=== PATIENT | female | born 1940 | race Caucasian/White ===

== ENCOUNTER 2020-09-13 14:26 | Outpatient (REF) | payer MEDICARE, SELFPAY ==
[2020-09-13 18:19] LABS: Anion Gap 14 (12-20); Blood Urea Nitrogen 18 mg/dL (9-16); Calcium 8.9 mg/dL (8.4-10.2); Carbon Dioxide 31 mmol/L (22-29); Chloride 101 mmol/L (96-108); Estimated Glomerular Filt Rate > 60; Glucose Random 80 mg/dL (60-115); Potassium 5.1 mmol/L (3.3-5.1); Sodium 141 mmol/L (135-145)
[2020-09-13 18:22] LABS: Hemoglobin 14.8 g/dl (12.0-16.0); Mean Corpuscular HGB Conc 32.9 g/dl (31.0-35.0); Mean Corpuscular Hemoglobin 30.8 pg (27.0-33.0); Mean Corpuscular Volume 93.6 fL (80-98); Mean Platelet Volume 10.3 fL (9.4-12.3); Platelet Count 360 X10*3/uL (160-400); Red Blood Count 4.81 X10*6/uL (4.20-5.50); Red Cell Distribution Width 13.2 % (11.0-16.0); White Blood Count 10.2 X10*3/uL (4.8-10.8)
[2020-09-13 18:41] LABS: Free T4 (Free Thyroxine) 0.92 ng/dL (0.71-1.85); Thyroid Stimulating Hormone 2.14 uIU/mL (0.32-4.0)
== END 2020-09-13 14:27 | disposition home or self-care (01) ==
LOC: HO.MANLDS 14:26
PROVIDERS: PCP Internal Medicine; Visit Provider Internal Medicine
DX: E05.90 Thyrotoxicosis, unspecified without thyrotoxic crisis or storm (principal); I48.91 Unspecified atrial fibrillation
CPT/HCPCS: 36415; 80048; 84439; 84443; 85027

== ENCOUNTER 2021-05-06 11:40 | Outpatient (REF) | payer MEDICARE, SELFPAY ==
[2021-05-06 12:50] LABS: Hemoglobin 14.8 g/dl (12.0-16.0); Mean Corpuscular HGB Conc 32.9 g/dl (31.0-35.0); Mean Corpuscular Hemoglobin 30.6 pg (27.0-33.0); Mean Corpuscular Volume 93.2 fL (80.0-98.0); Mean Platelet Volume 10.1 fL (9.4-12.3); Platelet Count 337 X10*3/uL (160-400); Red Blood Count 4.83 X10*6/uL (4.20-5.50); Red Cell Distribution Width 13.5 % (11.0-16.0); White Blood Count 9.2 X10*3/uL (4.8-10.8)
[2021-05-06 13:16] LABS: Alanine Aminotransferase 14 U/L (0-31); Albumin Level 4.1 g/dL (3.5-5.0); Alkaline Phosphatase 92 U/L (39-117); Anion Gap 14 (12-20); Aspartate Amino Transferase 20 U/L (5-31); Bilirubin Total 0.8 mg/dL (0.0-1.0); Blood Urea Nitrogen 19 mg/dL (9-16); Calcium 8.9 mg/dL (8.4-10.2); Carbon Dioxide 29 mmol/L (22-29); Chloride 101 mmol/L (96-108); Estimated Glomerular Filt Rate > 60; Glucose Random 90 mg/dL (60-115); Potassium 4.5 mmol/L (3.3-5.1); Sodium 139 mmol/L (135-145); Total Protein 6.8 g/dL (6.5-8.0)
[2021-05-06 13:38] LABS: Thyroid Stimulating Hormone 1.42 uIU/mL (0.32-4.0); Vitamin D 25-OH Total 43.4 ng/mL (>30)
== END 2021-05-06 11:41 | disposition home or self-care (01) ==
LOC: HO.MANLDS 11:40
PROVIDERS: PCP Internal Medicine; Visit Provider Internal Medicine
DX: E05.90 Thyrotoxicosis, unspecified without thyrotoxic crisis or storm (principal); I10 Essential (primary) hypertension
CPT/HCPCS: 36415; 80053; 82306; 84443; 85027

== ENCOUNTER 2021-12-12 18:38 | Outpatient (REF) | payer MEDICARE, SELFPAY ==
[2021-12-12 18:57] LABS: Appearance Urine HAZY; Color Urine DK YELLOW; Glucose Urine UA NEG (NEG); Leukocyte Esterase Urine 1+ (NEG); Nitrite Urine POS (NEG); Specific Gravity - Urine >= 1.030 (1.005-1.025); UACC Culture Trigger YES; Urine Blood NEG (NEG); Urine Ketones 5 MG/DL (NEG); Urine Protein NEG (NEG-TRACE)
[2021-12-12 19:10] LABS: Squamous Epithelial Cell Urine 3+ /LPF
[2021-12-12 19:11] LABS: Bacteria Urine 2+ /LPF; Calcium Oxalate Crystals Urine TRACE /LPF
[2021-12-12 19:13] LABS: RBC Urine 0-2 /HPF (0)
== END 2021-12-12 18:39 | disposition home or self-care (01) ==
LOC: HO.LNP 18:38
PROVIDERS: Visit Provider Physician Assistant
DX: R30.0 Dysuria (principal)
CPT/HCPCS: 81001; 87086; 87088; 87186

== ENCOUNTER 2021-12-27 12:20 | Outpatient (REF) | payer MEDICARE, SELFPAY ==
[2021-12-27 17:36] LABS: MANUAL DIFF FLAG NO
[2021-12-27 17:41] LABS: Appearance Urine CLEAR; Color Urine YELLOW; Glucose Urine UA NEG (NEG); Leukocyte Esterase Urine NEG (NEG); Nitrite Urine NEG (NEG); Specific Gravity - Urine 1.025 (1.005-1.025); Urine Blood NEG (NEG); Urine Ketones NEG (NEG); Urine Protein NEG (NEG-TRACE)
[2021-12-27 17:42] LABS: Basophils Absolute Auto 0.1 X10*3/uL (0.0-0.2); Basophils Percent Auto 0.8 % (0-2); Eosinophils Absolute Auto 0.1 X10*3/uL (0.0-0.4); Eosinophils Percent Auto 1.2 % (0-4); Hematocrit 45.4 % (37.0-47.0); Hemoglobin 14.5 g/dl (12.0-16.0); Imm Gran Abs Auto 0.02 X10*3/uL (0.00-0.03); Imm Gran Pct Auto 0.2 % (0.0-0.4); Lymphocytes Absolute Auto 4.3 X10*3/uL (1.2-4.9); Lymphocytes Percent Auto 45.6 % (20-40); Mean Corpuscular HGB Conc 31.9 g/dl (31.0-35.0); Mean Corpuscular Hemoglobin 29.9 pg (27.0-33.0); Mean Corpuscular Volume 93.6 fL (80.0-98.0); Monocytes Absolute Auto 1.1 X10*3/uL (0.1-1.2); Monocytes Percent Auto 11.9 % (2-11); Neutrophils Absolute Auto 3.8 x10*3/uL (2.0-8.3); Neutrophils Percent Auto 40.3 % (45-73); Platelet Count 329 X10*3/uL (160-400); Red Blood Count 4.85 X10*6/uL (4.20-5.50); Red Cell Distribution Width 13.9 % (11.0-16.0); White Blood Count 9.4 X10*3/uL (4.8-10.8)
[2021-12-27 18:06] LABS: Alanine Aminotransferase 13 U/L (0-31); Alkaline Phosphatase 87 U/L (39-117); Anion Gap 14 (12-20); Aspartate Amino Transferase 20 U/L (5-31); Bilirubin Total 0.9 mg/dL (0.0-1.0); Blood Urea Nitrogen 16 mg/dL (9-16); Calcium 8.6 mg/dL (8.4-10.2); Carbon Dioxide 27 mmol/L (22-29); Chloride 100 mmol/L (96-108); Estimated Glomerular Filt Rate > 60; Glucose Random 90 mg/dL (60-115); Iron 147 mcg/dL (30-160); Percent Iron Saturation 46 % (15-50); Potassium 3.7 mmol/L (3.3-5.1); Sodium 137 mmol/L (135-145); Total Iron Binding Capacity 320 mcg/dL (228-428); Total Protein 6.7 g/dL (6.5-8.0); Unsaturated Iron Binding 173 ug/dL
[2021-12-27 18:07] LABS: Calcium Oxalate Crystals Urine 1+ /LPF; Squamous Epithelial Cell Urine 1+ /LPF
[2021-12-27 18:09] LABS: Hyaline Casts Urine 0-2 /LPF
[2021-12-27 18:10] LABS: RBC Urine 0-2 /HPF (0); WBC Urine 0 /HPF (0-4)
== END 2021-12-27 12:21 | disposition home or self-care (01) ==
LOC: HO.MANLDS 12:20
PROVIDERS: Visit Provider Physician Assistant
DX: R82.998 Other abnormal findings in urine (principal)
CPT/HCPCS: 36415; 80053; 81001; 83540; 85025

== ENCOUNTER 2022-11-07 10:23 | Outpatient (REF) | payer MEDICARE, SELFPAY ==
[2022-11-07 14:18] LABS: MANUAL DIFF FLAG NO
[2022-11-07 14:29] LABS: Basophils Absolute Auto 0.1 X10*3/uL (0.0-0.2); Eosinophils Absolute Auto 0.2 X10*3/uL (0.0-0.4); Eosinophils Percent Auto 1.8 % (0-4); Hematocrit 45.6 % (37.0-47.0); Hemoglobin 14.7 g/dl (12.0-16.0); Imm Gran Abs Auto 0.03 X10*3/uL (0.00-0.03); Imm Gran Pct Auto 0.3 % (0.0-0.4); Lymphocytes Absolute Auto 3.4 X10*3/uL (1.2-4.9); Lymphocytes Percent Auto 38.3 % (20-40); Mean Corpuscular HGB Conc 32.2 g/dl (31.0-35.0); Mean Corpuscular Hemoglobin 30.2 pg (27.0-33.0); Mean Corpuscular Volume 93.8 fL (80.0-98.0); Mean Platelet Volume 10.2 fL (9.4-12.3); Monocytes Absolute Auto 0.9 X10*3/uL (0.1-1.2); Monocytes Percent Auto 10.5 % (2-11); Neutrophils Absolute Auto 4.3 x10*3/uL (2.0-8.3); Neutrophils Percent Auto 48.1 % (45-73); Platelet Count 302 X10*3/uL (160-400); Red Blood Count 4.86 X10*6/uL (4.20-5.50); Red Cell Distribution Width 13.5 % (11.0-16.0); White Blood Count 8.9 X10*3/uL (4.8-10.8)
[2022-11-07 14:40] LABS: INTERNATIONAL NORM RATIO 2.3 (0.9-1.1); Prothrombin Time 27.9 SEC (10.0-13.1)
[2022-11-07 14:57] LABS: Alanine Aminotransferase 15 U/L (0-31); Alkaline Phosphatase 98 U/L (39-117); Anion Gap 13 (12-20); Aspartate Amino Transferase 21 U/L (5-31); Bilirubin Total 0.5 mg/dL (0.0-1.0); Blood Urea Nitrogen 18 mg/dL (9-16); Calcium 9.3 mg/dL (8.4-10.2); Carbon Dioxide 29 mmol/L (22-29); Chloride 103 mmol/L (96-108); Estimated Glomerular Filt Rate > 60; Glucose Random 106 mg/dL (60-115); Iron 70 mcg/dL (30-160); Percent Iron Saturation 25 % (15-50); Potassium 5.2 mmol/L (3.3-5.1); Sodium 140 mmol/L (135-145); Total Iron Binding Capacity 285 mcg/dL (228-428); Total Protein 6.7 g/dL (6.5-8.0); Unsaturated Iron Binding 215 ug/dL
[2022-11-07 15:15] LABS: Ferritin 51 ng/mL (10-250); Thyroid Stimulating Hormone 1.78 uIU/mL (0.32-4.0)
== END 2022-11-07 10:24 | disposition home or self-care (01) ==
LOC: HO.MANLDS 10:23
PROVIDERS: Visit Provider Internal Medicine
DX: I48.0 Paroxysmal atrial fibrillation (principal); I10 Essential (primary) hypertension; Z86.39 Personal history of other endocrine, nutritional and metabolic disease
CPT/HCPCS: 36415; 80053; 82728; 83540; 84443; 85025; 85610

== ENCOUNTER 2024-01-01 08:57 | Outpatient (REF) | payer MEDICARE, SELFPAY ==
[2024-01-01 13:00] LABS: MANUAL DIFF FLAG NO
[2024-01-01 13:23] LABS: Basophils Absolute Auto 0.1 X10*3/uL (0.0-0.2); Eosinophils Absolute Auto 0.2 X10*3/uL (0.0-0.4); Hematocrit 46.1 % (37.0-47.0); Hemoglobin 14.8 g/dl (12.0-16.0); Imm Gran Abs Auto 0.02 X10*3/uL (0.00-0.03); Imm Gran Pct Auto 0.2 % (0.0-0.4); Lymphocytes Absolute Auto 4.3 X10*3/uL (1.2-4.9); Lymphocytes Percent Auto 47.4 % (20-40); Mean Corpuscular HGB Conc 32.1 g/dl (31.0-35.0); Mean Corpuscular Volume 93.3 fL (80.0-98.0); Mean Platelet Volume 10.4 fL (9.4-12.3); Monocytes Absolute Auto 0.8 X10*3/uL (0.1-1.2); Monocytes Percent Auto 8.7 % (2-11); Neutrophils Absolute Auto 3.7 x10*3/uL (2.0-8.3); Neutrophils Percent Auto 40.7 % (45-73); Platelet Count 335 X10*3/uL (160-400); Red Blood Count 4.94 X10*6/uL (4.20-5.50); Red Cell Distribution Width 13.7 % (11.0-16.0)
[2024-01-01 13:25] LABS: INTERNATIONAL NORM RATIO 2.9 (0.9-1.1); Prothrombin Time 34.8 SEC (11.1-13.3)
[2024-01-01 13:32] LABS: Estimated Average Glucose 114 mg/dL; Hemoglobin A1c % 5.6 % (<6.0)
[2024-01-01 13:46] LABS: Alanine Aminotransferase 12 U/L (0-31); Albumin Level 4.1 g/dL (3.5-5.0); Alkaline Phosphatase 91 U/L (39-117); Anion Gap 13 (12-20); Aspartate Amino Transferase 24 U/L (5-31); Bilirubin Total 0.7 mg/dL (0.0-1.0); Blood Urea Nitrogen 19 mg/dL (9-16); Calcium 9.6 mg/dL (8.4-10.2); Carbon Dioxide 30 mmol/L (22-29); Chloride 102 mmol/L (96-108); Cholesterol 211 mg/dL (<200); Estimated Glomerular Filt Rate > 60; Glucose Random 84 mg/dL (60-115); HDL Cholesterol 43 mg/dL (>40); LDL Cholesterol Calculated 141 mg/dL (<100); Potassium 4.7 mmol/L (3.3-5.1); Sodium 140 mmol/L (135-145); Total Protein 7.2 g/dL (6.5-8.0); Triglycerides 135 mg/dL (<150)
[2024-01-01 13:56] LABS: Vitamin B12 1356 pg/mL (200-900)
[2024-01-01 14:04] LABS: Thyroid Stimulating Hormone 1.09 uIU/mL (0.32-4.0); Vitamin D 25-OH Total 84.7 ng/mL (>30)
== END 2024-01-01 08:58 | disposition home or self-care (01) ==
LOC: HO.MANLDS 08:57
PROVIDERS: Visit Provider Physician Assistant
DX: Z00.00 Encounter for general adult medical examination without abnormal findings (principal); I48.0 Paroxysmal atrial fibrillation; R73.01 Impaired fasting glucose
CPT/HCPCS: 36415; 80053; 80061; 82306; 82607; 83036; 84439; 84443; 85025; 85610

== ENCOUNTER 2025-04-07 15:17 | Outpatient (REF) | payer MEDICARE, SELFPAY ==
--- OUTSIDE RECORDS SUMMARY | 2025-04-07 18:28 | XMS_ITS | Encounter Summary ---
Author Organization [facility] Address [address] [place] [address] Phone Care Team Providers Care Automatic Brine Mixer Operator Name Role Phone Danny Morgan DO Primary Care Provider [phone] Radha Tapia RN Unavailable [phone] Danny Morgan DO Primary Care Provider [phone] Encounter Details Date Type Department Care Team (Late Contact Info) Description 05/07/2017 Procedure Pass [facility] Endoscopy Admitting Dept Virtual Department 30 [place] [address] Social History Tobacco Use Types Packs/Day Years Used Date Smoking Tobacco: Former Cigarettes Q uit: 07/02/1967 Smokeless Tobacco: Never Alcohol Use Standard Drinks/Week Comments No 0 (1 standard drink = 0.6 oz pur e alcohol) Occasional Comments No Sex and Gender Information Value Date Recorded Sex Assigned at Female 07/09/2017 9:38 AM EST Legal Sex Female 10:13 PM EDT Gender Identity Female 07/09/2017 9:38 AM EST Sexual Orientation Straight 07/09/2017 9: 38 AM EST documented as of this encounter Plan of Treatment Upcoming Encounters Date Type Department Care Team (Late Contact Info) Description 04/27/2025 10:00 AM EDT Office Visit Anticoagulation Clinic 30 [place] [address] Danny Morgan DO 179 [facility] [place] [address] [email or web address] 06/05/2025 8:20 AM EST Office Visit [facility] [address] Floor, [address] [place] [address] Duncan Venegas MD 50 [place] [address] documented as of this encounter Visit Diagnoses Not on filedocumented in this encounter Additional Health Concerns Infection Onset Date Last Indicated Resolved Time CoV-Exposed Comment:Recent close contact 07/13/2020 07/13/2020 07/27/2020 1:24 AM EST documented as of this encounter Care Teams Automatic Brine Mixer Operator Relationship Specialty Start Date End Date Danny Morgan DO [email or web address] PCP - General 04/19/17 11/02/24 Danny Morgan DO 179 [facility] [place] [address] [place] [address] [email or web address] PCP - General Internal Medicine 11/03/24 Radha Tapia, RN 30 [place] [address] Registered Nurse 11/21/21 documented as of this encounter Additional Source Comments The information contained in this document represents components of the legal health record. It is not the complete legal health record.[facility]
--- OUTSIDE RECORDS SUMMARY | 2025-04-07 18:28 | XMS_ITS | Encounter Summary ---
Author Organization [facility] Address [address] [place] [address] Phone Care Team Providers Care Central Service Tech Name Role Phone Danny Morgan DO Primary Care Provider [phone] Radha Tapia RN Unavailable [phone] Danny Morgan DO Primary Care Provider [phone] Encounter Details Date Type Department Care Team (Late Contact Info) Description 05/06/2017 Procedure Pass [facility] Endoscopy Admitting Dept Virtual Department 30 [place] [address] Social History Tobacco Use Types Packs/Day Years [...] AM EDT Office Visit Anticoagulation Clinic 30 [place] [address] Danny Morgan DO 179 [place] [address] 06/05/2025 8:20 AM EST Office Visit [facility] [address] Floor, [address] [place] [address] Duncan Venegas MD 50 [place] [address] documented as of this encounter Visit Diagnoses Not on filedocumented in this encounter Additional Health Concerns Infection Onset Date Last Indicated Resolved Time CoV-Exposed Comment:Recent close contact 07/13/2020 07/13/2020 07/27/2020 1:24 AM EST documented as of this encounter Care Teams Central Service Tech Relationship Specialty Start Date End Date Danny Morgan DO PCP - General 04/19/17 11/02/24 Danny Morgan DO 179 [facility] [place] [address] PCP - General Internal Medicine 11/03/24 Radha Tapia, RN 30 [place] [address] Registered Nurse 11/21/21 documented as of this encounter Additional Source Comments The information contained in this document represents components of the legal health record. It is not the complete legal health record.[facility]
--- OUTSIDE RECORDS SUMMARY | 2025-04-07 18:28 | XMS_ITS | Encounter Summary ---
Author Organization [facility] Address [address] [place] [address] Phone Care Team Providers Care Music Agent Name Role Phone Danny Morgan DO Primary Care Provider [phone] Radha Tapia RN Unavailable [phone] Danny Morgan DO Primary Care Provider [phone] Reason for Referral * Consultation (Routine) - Closed Specialty Diagnoses / Procedures Referred By Italia rincon Referred To Contact Diagnoses Atrial fibrillation Chronic anticoagulation Danny Morgan DO Phone: tel: fax: mailto: [address] [address] Phone: tel: Referral ID Status Reason Start Date Expiration Date Visits Re quested Visits Authorized [id number] Closed 09/03/2017 09/03/2018 1 1 Encounter Details Date Type Department Care Team (Latest Contact Info) Description 09/03/2017 Transcribe Orders Anticoagulation Clinic [address] [place] [address] Leana Grider RN 30 [place] [address] [email or web address] Atrial fibrillation (Primary Dx); Chronic anticoagulation Social History Tobacco Use Types Packs/Day Years [...] Encounters Date Type Department Care Team (Late st Contact Info) Description 04/27/2025 10:00 AM EDT Office Visit Anticoagulation Clinic 30 [place] [address] Danny Morgan DO 179 [facility] [place] [address] [email or web address] 06/05/2025 8:20 AM EST Office Visit [facility] [address] [facility] 3rd Floor, [address] [place] [address] Duncan Venegas MD [address] [place] [address] [email or web address] documented as of this encounter Procedures Procedure Name Priority Date/Time Associated Diagnosis Comments AMB REFERRAL TO [facility] ANTICOAGULATION [facility]IC Routine 09/10/2017 10:44 AM EDT Atrial fibrillation Chronic anticoagulation documented in this encounter Results * Ambulatory referral to [facility] Anticoagulation Clinic (09/10/2017 10:44 AM EDT) us Danny BASHIR [facility] REFERRALS Final Result documented in this encounter Visit Diagnoses Diagnosis Atrial fibrillation- Primary Chronic anticoagulation Encounter for long-term (current) use of anticoagulants documented in this encounter Additional Health Concerns Infection Onset Date Last Indicated Resolved Time CoV-Exposed Comment:Recent close contact 07/13/2020 07/13/2020 07/27/2020 1:24 AM EST documented as of this encounter Care Teams Music Agent Relationship Specialty Start Date End Date Danny Morgan DO PCP - General 04/19/17 11/02/24 Danny Morgan DO 179 [place] [address] [email or web address] PCP - General Internal Medicine 11/03/24 Radha Tapia, RN 30 [place] [address] [email or web address] Registered Nurse 11/21/21 documented as of this encounter Additional Source Comments The information contained in this document represents components of the legal health record. It is not the complete legal health record.[facility]
--- OUTSIDE RECORDS SUMMARY | 2025-04-07 18:28 | XMS_ITS | Encounter Summary ---
Author Organization [facility] Address [address] [place] [address] Phone Care Team Providers Care Lead Ramp Agent Name Role Phone Danny Morgan DO Primary Care Provider [phone] Radha Tapia RN Unavailable [phone] Danny Morgan DO Primary Care Provider [phone] Encounter Details Date Type Department Care Team (Late Contact Info) Description 01/25/2022 Ancillary Orders Virtual Department 30 [place] [address] Sarita Coulter PA 6 [facility] [place] [address] Social History Tobacco Use Types Packs/Day Years [...] AM EDT Office Visit Anticoagulation Clinic 30 [place] [address] Danny Morgan DO 179 [facility] [place], [place] [phone] 06/05/2025 8:20 AM EST Office Visit [facility] [address] [facility] [address], [address] [place] [address] Duncan Venegas MD 50 [place] [address] documented as of this encounter Visit Diagnoses Not on filedocumented in this encounter Care Teams Lead Ramp Agent Relationship Specialty Start Date End Date Danny Morgan DO PCP - General 04/19/17 11/02/24 Danny Morgan DO 179 [facility] [place] [address] PCP - General Internal Medicine 11/03/24 Radha Tapia, RN 30 [place] [address] Registered Nurse 11/21/21 documented as of this encounter Additional Source Comments The information contained in this document represents components of the legal health record. It is not the complete legal health record.[facility]
--- OUTSIDE RECORDS SUMMARY | 2025-04-07 18:28 | XMS_ITS | Encounter Summary ---
Author Organization [facility] Address [address] [place] [address] Phone Care Team Providers Care Mattress Filling Machine Tender Name Role Phone Danny Morgan DO Primary Care Provider [phone] Radha Tapia RN Unavailable [phone] Danny Morgan DO Primary Care Provider [phone] Encounter Details Date Type Department Care Team ([facility] Contact Info) Description 06/14/2017 Ancillary Orders Virtual Department 30 [place] [address] James Dover MD [address] [place] [phone] [email or web address] Abdominal pain, unspecified abdominal location Social History Tobacco Use Types Packs/Day Years [...] Upcoming Encounters Date Type Department Care Team ([facility] Contact Info) Description 04/27/2025 10:00 AM EDT Office Visit Anticoagulation Clinic 30 [place] [address] Danny Morgan DO 179 [facility] [place] [address] 06/05/2025 8:20 AM EST Office Visit [facility] [address] Floor, [address] [place] [address] Duncan Venegas MD [address] [place] [address] documented as of this encounter Visit Diagnoses Diagnosis Abdominal pain, unspecified abdominal location documented in this encounter Additional Health Concerns Infection Onset Date Last Indicated Resolved Time CoV-Exposed Comment:Recent close contact 07/13/2020 07/13/2020 07/27/2020 1:24 AM EST documented as of this encounter Care Teams Mattress Filling Machine Tender Relationship Specialty Start Date End Date Danny Morgan DO PCP - General 04/19/17 11/02/24 Danny Morgan DO 179 [facility] [place] [address] PCP - General Internal Medicine 11/03/24 Radha Tapia, RN 30 [place] [address] Registered Nurse 11/21/21 documented as of this encounter Additional Source Comments The information contained in this document represents components of the legal health record. It is not the complete legal health record.[facility]
--- OUTSIDE RECORDS SUMMARY | 2025-04-07 18:28 | XMS_ITS | Encounter Summary ---
Author Organization [facility] Address [address] [place] [address] Phone Care Team Providers Care Senior Hris Analyst Name Role Phone Danny Morgan DO Primary Care Provider [phone] Radha Tapia RN Unavailable [phone] Danny Morgan DO Primary Care Provider [phone] Encounter Details Date Type Department Care Team (Late Contact Info) Description 09/03/2017 Procedure Pass [facility] Endoscopy Admitting Dept Virtual Department 30 [place] [address] Social History Tobacco Use Types Packs/Day Years [...] AM EDT Office Visit Anticoagulation Clinic 30 [place] [address] Danny Morgan DO 179 [facility] [place] [address] 06/05/2025 8:20 AM EST Office Visit [facility] [address], [address] [place] [address] Duncan Venegas MD 50 [place] [address] documented as of this encounter Visit Diagnoses Not on filedocumented in this encounter Additional Health Concerns Infection Onset Date Last Indicated Resolved Time CoV-Exposed Comment:Recent close contact 07/13/2020 07/13/2020 07/27/2020 1:24 AM EST documented as of this encounter Care Teams Senior Hris Analyst Relationship Specialty Start Date End Date Danny Morgan DO PCP - General 04/19/17 11/02/24 Danny Morgan DO 179 [facility] [place] [place] [address] PCP - General Internal Medicine 11/03/24 Radha Tapia, RN 30 [place] [address] Registered Nurse 11/21/21 documented as of this encounter Additional Source Comments The information contained in this document represents components of the legal health record. It is not the complete legal health record.[facility]
--- OUTSIDE RECORDS SUMMARY | 2025-04-07 18:28 | XMS_ITS | Encounter Summary ---
Author Organization [facility] Address [address] [address] Phone Care Team Providers Care Silk Conditioner Name Role Phone Danny Morgan DO Primary Care Provider [phone] Radha Tapia RN Unavailable [phone] Danny Morgan DO Primary Care Provider [phone] Encounter Details Date Type Department Care Team (Latest Contact Info) Description 09/26/2017 Transcribe Orders [facility] Laboratory 10 [facility] 2nd [place] [address] Rei Nguyen MD 10 [facility] 2 [place] [address] [email or web address] Acute gastrointestinal hemorrhage (Primary Dx) Social History Tobacco Use Types Packs/Day Years [...] AM EDT Office Visit Anticoagulation Clinic 30 [place] [address] Danny Morgan DO 179 [facility] [place] [address] 06/05/2025 8:20 AM EST Office Visit [facility] [address] Floor, [address] [place] [address] Duncan Venegas MD 50 [place] [address] documented as of this encounter Results * Ferritin (09/26/2017 9:57 AM EDT) FERRITIN 78 13 - 150 ug/L [facility] Blood 09/26/2017 9:57 AM EDT 09/26/2017 10:00 AM EDT us Rei Nguyen MD LAB BLOOD ORDERABLES Final Resul t [address] [address] * TSH (09/26/2017 9:57 AM EDT) TSH 1.86 0.27 - 4.20 uIU/mL [facility] Blood 09/26/2017 9:57 AM EDT 09/26/2017 10:00 AM EDT us Rei Nguyen MD LAB BLOOD ORDERABLES Final Resul t [address] [address] * Iron and iron binding capacity (09/26/2017 9:57 AM EDT) IRON 131 30 - 160 ug/dL [facility] IRON BINDING CAPACITY 275 228 - 428 ug/dL [facility] TRANSFERRIN SATURAT. 48 15 - 50 % [facility] Blood 09/26/2017 9:57 AM EDT 09/26/2017 10:00 AM EDT us Rei Nguyen MD LAB BLOOD ORDERABLES Final Resul t [facility] 30 [place] [address] * (ABNORMAL) CBC and differential (09/26/2017 9:57 AM EDT) WBC 7.25 3.40 - 11.20 K/uL [facility] RBC 4.88(H) 3.80 - 4.80 M/uL [facility] HGB 14.2 12.0 - 15.0 g/dL [facility] HCT 43.3 36.0 - 46.0 % [facility] PLT 318 130 - 400 K/uL [facility] MCV 88.7 79.0 - 98.0 fL [facility] MCH 29.1 27.0 - 34.8 pg [facility] MCHC 32.8 31.5 - 36.0 g/dL [facility] RDW 15.3(H) 10.8 - 14.6 % [facility] MPV 9.9 9.4 - 12.4 fl [facility] NRBC 0.00 /100 WBCs [facility] ABSOLUTE NRBC 0.00 K/uL [facility] DIFF METHOD Auto [facility] NEUTS 50.5 45.30 - 77.70 % [facility] LYMPHS 35.0 12.30 - 39.70 % [facility] MONOS 11.2 4.10 - 12.80 % [facility] EOS 2.2 0 - 7.2 % [facility] BASOS 1.0 0 - 2.80 % [facility] Granulocytes, immature (%) 0.1 0.0 - 0.9 % [facility] ABSOLUTE NEUTS 3.66 1.40 - 7.70 K/uL [facility] ABSOLUTE LYMPHS 2.54 0.60 - 3.20 K/uL [facility] ABSOLUTE MONOS 0.81(H) 0.11 - 0.59 K/uL [facility] ABSOLUTE EOS 0.16 0.01 - 0.50 K/uL [facility] ABSOLUTE BASOS 0.07 0.00 - 0.08 K/uL [facility] Granulocytes, immature 0.01 0.00 - 0.05 K/uL [facility] Blood 09/26/2017 9:57 AM EDT 09/26/2017 10:00 AM EDT us Rei Nguyen MD LAB BLOOD ORDERABLES Final Resul t [facility] [address] [place] [address] documented in this encounter Visit Diagnoses Diagnosis Acute gastrointestinal hemorrhage- Primary Unspecified, hemorrhage of gastrointestinal tract documented in this encounter Additional Health Concerns Infection Onset Date Last Indicated Resolved Time CoV-Exposed Comment:Recent close contact 07/13/2020 07/13/2020 07/27/2020 1:24 AM EST documented as of this encounter Care Teams Silk Conditioner Relationship Specialty Start Date End Date Danny Morgan DO PCP - General 04/19/17 11/02/24 Danny Morgan DO 179 [place] [address] PCP - General Internal Medicine 11/03/24 Radha Tapia RN 30 [place] [address] Registered Nurse 11/21/21 documented as of this encounter Additional Source Comments The information contained in this document represents components of the legal health record. It is not the complete legal health record.[facility]
--- OUTSIDE RECORDS SUMMARY | 2025-04-07 18:28 | XMS_ITS | Encounter Summary ---
Author Organization [facility] Address [address] [place] [address] Phone Care Team Providers Care Leather Coater Name Role Phone Danny Morgan DO Primary Care Provider [phone] Radha Tapia RN Unavailable [phone] Danny Morgan DO Primary Care Provider [phone] Encounter Details Date Type Department Care Team (Late Contact Info) Description 06/11/2017 Procedure Pass [facility] Endoscopy Admitting Dept Virtual Department 30 [place] [address] Social History Tobacco Use Types Packs/Day Years [...] AM EDT Office Visit Anticoagulation Clinic 30 [place] [address] Danny Morgan DO 179 [facility] [place] [address] [email or web address] 06/05/2025 8:20 AM EST Office Visit [facility] [address], [address] [place] [address] Duncan Venegas MD 50 [place] [address] documented as of this encounter Visit Diagnoses Not on filedocumented in this encounter Additional Health Concerns Infection Onset Date Last Indicated Resolved Time CoV-Exposed Comment:Recent close contact 07/13/2020 07/13/2020 07/27/2020 1:24 AM EST documented as of this encounter Care Teams Leather Coater Relationship Specialty Start Date End Date Danny Morgan DO [email or web address] PCP - General 04/19/17 11/02/24 Danny Morgan DO 179 [facility] [place] [address] [email or web address] PCP - General Internal Medicine 11/03/24 Radha Tapia, RN 30 [place] [address] Registered Nurse 11/21/21 documented as of this encounter Additional Source Comments The information contained in this document represents components of the legal health record. It is not the complete legal health record.[facility]
--- OUTSIDE RECORDS SUMMARY | 2025-04-07 18:29 | XMS_ITS | Encounter Summary ---
Author Organization [facility] Address [address] [place] [address] Phone Care Team Providers Care Roper Operator Name Role Phone Danny Morgan DO Primary Care Provider [phone] Radha Tapia RN Unavailable [phone] Danny Morgan DO Primary Care Provider [phone] Reason for Referral * Consultation (Routine) - Closed Specialty Diagnoses / Procedures Referred By Italia rincon Referred To Contact Diagnoses Atrial fibrillation, unspecified type Danny Morgan DO Phone: tel: fax: [email or web address] [email or web address] 30 [place] [address] Phone: tel: Referral ID Status Reason Start Date Expiration Date Visits Re quested Visits Authorized [id number] Closed 06/27/2018 06/27/2019 1 1 Encounter Details Date Type Department Care Team (Late st Contact Info) Description 06/27/2018 Transcribe Orders Virtual Department 30 [place] [address] Danny Morgan DO 179 [facility] [place] [address] [email or web address] Atrial fibrillation, unspecified type (Primary Dx) Social History Tobacco Use Types [...] AM EDT Office Visit Anticoagulation Clinic 30 [place] [address] Danny Morgan DO 179 [facility] [place] [address] 06/05/2025 8:20 AM EST Office Visit [facility] 22 [facility] 3rd Floor, [address] [place] [address] Duncan Venegas MD [address] [place] [address] documented as of this encounter Procedures Procedure Name Priority Date/Time Associated Diagnosis Comments AMB REFERRAL TO [facility] ANTICO[facility]ULATION [facility]IC Routine 07/15/2018 10:08 AM EST Atrial fibrillation, unspecified type documented in this encounter Results * Ambulatory referral to [facility] Anticoagulation Clinic (07/15/2018 10:08 AM EST) Danny Morgan DO AMB [facility] REFERRALS Final Result documented in this encounter Visit Diagnoses Diagnosis Atrial fibrillation, unspecified type- Primary documented in this encounter Additional Health Concerns Infection Onset Date Last Indicated Resolved Time CoV-Exposed Comment:Recent close contact 07/13/2020 07/13/2020 07/27/2020 1:24 AM EST documented as of this encounter Care Teams Roper Operator Relationship Specialty Start Date End Date Danny Morgan DO PCP - General 04/19/17 11/02/24 Danny Morgan DO [address] [place] [address] [email or web address] PCP - General Internal Medicine 11/03/24 Radha Tapia RN 30 [place] [address] [email or web address] Registered Nurse 11/21/21 documented as of this encounter Additional Source Comments The information contained in this document represents components of the legal health record. It is not the complete legal health record.[facility]
--- OUTSIDE RECORDS SUMMARY | 2025-04-07 18:29 | XMS_ITS | Encounter Summary ---
Author Organization [facility] Address [address] [place] [address] Phone Care Team Providers Care Aix Administrator Name Role Phone Danny Morgan DO Primary Care Provider [phone] Radha Tapia RN Unavailable [phone] Danny Morgan DO Primary Care Provider [phone] Reason for Referral * Consultation (Elective) - Closed Specialty Diagnoses / Procedures Referred By Italia rincon Referred To Contact Diagnoses Atrial fibrillation, unspecified type Danny Morgan DO Phone: tel: fax: [email or web address] [address] [place] [address] Phone: tel: Referral ID Status Reason Start Date Expiration Date Visits Re quested Visits Authorized [id number] Closed 06/01/2021 06/01/2022 1 1 Encounter Details Date Type Department Care Team (Late st Contact Info) Description 06/01/2021 Transcribe Orders Virtual Department [address] [place] [address] Danny Morgan DO 179 [facility] [place] [address] [email or web address] Atrial fibrillation, unspecified type (Primary Dx) Social [...] AM EDT Office Visit Anticoagulation Clinic [address] [place] [address] Danny Morgan DO [address] [place] [address] 06/05/2025 8:20 AM EST Office Visit [facility] [address] [facility] 3rd Floor, [address] [place] [address] Duncan Venegas MD [address] [place] [address] documented as of this encounter Procedures Procedure Name Priority Date/Time Associated Diagnosis Comments AMB REFERRAL TO [facility] ANTICO[facility]ULATION [facility] Routine 06/06/2021 10:07 AM EST Atrial fibrillation, unspecified type documented in this encounter Results * Ambulatory referral to [facility] Anticoagulation Clinic (06/06/2021 10:07 AM EST) Other Danny BASHIR [facility] REFERRALS Final Result documented in this encounter Visit Diagnoses Diagnosis Atrial fibrillation, unspecified type- Primary documented in this encounter Care Teams Aix Administrator Relationship Specialty Start Date End Date Danny Morgan DO [email or web address] PCP - General 04/19/17 11/02/24 Danny Morgan DO [address] [place] [address] PCP - General Internal Medicine 11/03/24 Radha Tapia RN [address] [place] [address] [email or web address] Registered Nurse 11/21/21 documented as of this encounter Additional Source Comments The information contained in this document represents components of the legal health record. It is not the complete legal health record.[facility]
--- OUTSIDE RECORDS SUMMARY | 2025-04-07 18:29 | XMS_ITS | Encounter Summary ---
Author Organization [facility] Address [address] [place] [address] Phone Care Team Providers Care Wildlife Protector Name Role Phone Danny Morgan DO Primary Care Provider [phone] Radha Tapia RN Unavailable [phone] Danny Morgan DO Primary Care Provider [phone] Encounter Details Date Type Department Care Team (Latest Contact Info) Description 07/13/2020 Transcribe Orders Virtual Department [address] [place] [address] Sarita Coulter PA 6 [facility] [place], [place] [id number] Exposure to SARS-associated coronavirus (Primary Dx) Social History Tobacco Use Types [...] AM EDT Office Visit Anticoagulation Clinic [address] [place] [address] Danny Morgan DO 179 [place] [address] [email or web address] 06/05/2025 8:20 AM EST Office Visit [facility] [address]rd Floor, [address] [place] [address] Duncan Venegas MD 50 [place] [address] documented as of this encounter Results * COVID-19 PCR Order (07/14/2020 8:47 AM EST) COVID Testing Status Specimen received in analyzing lab. [facility] Symptomatic? NO [facility] Other 07/14/2020 8:47 AM EST 07/14/2020 12:33 PM EST Sarita YADAV BODY FLUIDS AND STOOLS INES WEEKS Final Result [facility] [address] [place] [address] [facility] [address] [place] [address] documented in this encounter Visit Diagnoses Diagnosis Exposure to SARS-associated coronavirus- Primary documented in this encounter Additional Health Concerns Infection Onset Date Last Indicated Resolved Time CoV-Exposed Comment:Recent close contact 07/13/2020 07/13/2020 07/27/2020 1:24 AM EST documented as of this encounter Care Teams Wildlife Protector Relationship Specialty Start Date End Date Danny Morgan DO [email or web address] PCP - General 04/19/17 11/02/24 Danny Morgan DO [address] [place] [address] [email or web address] PCP - General Internal Medicine 11/03/24 Radha Tapia, RN 30 [place] [address] Registered Nurse 11/21/21 documented as of this encounter Additional Source Comments The information contained in this document represents components of the legal health record. It is not the complete legal health record.[facility]
--- OUTSIDE RECORDS SUMMARY | 2025-04-07 18:29 | XMS_ITS | Encounter Summary ---
Author Organization [facility] Address [address] [place] [address] Phone Care Team Providers Care Vp Analysis Name Role Phone Danny Morgan DO Primary Care Provider [phone] Radha Tapia RN Unavailable [phone] Danny Morgan DO Primary Care Provider [phone] Encounter Details Date Type Department Care Team (Late Contact Info) Description 01/25/2022 Ancillary Orders Virtual Department 30 [place] [address] Sarita Coulter PA 6 [facility] [place] [address] Social History Tobacco Use Types Packs/Day Years [...] AM EDT Office Visit Anticoagulation Clinic [address] [place] [address] Danny Morgan DO 179 [facility] [place], [place] [phone] 06/05/2025 8:20 AM EST Office Visit [facility] [address] [facility], [address] [place] [address] Duncan Venegas MD 50 [place] [address] documented as of this encounter Visit Diagnoses Not on filedocumented in this encounter Care Teams Vp Analysis Relationship Specialty Start Date End Date Danny Morgan DO PCP - General 04/19/17 11/02/24 Danny Morgan DO 179 [facility] [address] PCP - General Internal Medicine 11/03/24 Radha Tapia, RN 30 [place] [address] Registered Nurse 11/21/21 documented as of this encounter Additional Source Comments The information contained in this document represents components of the legal health record. It is not the complete legal health record.[facility]
--- OUTSIDE RECORDS SUMMARY | 2025-04-07 18:29 | XMS_ITS | Encounter Summary ---
Author Organization [facility] Address [address] [place] [address] Phone Care Team Providers Care Collection Administrator Name Role Phone Danny Morgan DO Primary Care Provider [phone] Radha Tapia RN Unavailable [phone] Danny Morgan DO Primary Care Provider [phone] Encounter Details Date Type Department Care Team (Latest Contact Info) Description 01/11/2022 Transcribe Orders Virtual Department 30 [place] [address] Sarita Coulter PA 6 [facility] [place], [place] [id number] Other abnormal findings in urine (Primary Dx) Social History Tobacco Use Types [...] AM EDT Office Visit Anticoagulation Clinic 30 [place] [address] Danny Morgan DO 179 [facility] [place] [address] 06/05/2025 8:20 AM EST Office Visit [facility] [address] Floor, [address] [place] [address] Duncan Venegas MD 50 [place] [address] documented as of this encounter Results * US Bladder (01/25/2022 9:05 AM EDT) Anatomical Region Laterality Modality Abdomen, Kidney Ultrasound 01/25/2022 9:13 AM EDT Impressions 01/25/2022 9:15 AM EDT No significant sonographic abnormality. Narrative 01/25/2022 9:15 AM EDT US BLADDER TECHNIQUE: Bladder Ultrasound. COMPARISON: None FINDINGS: Bladder: Partially filled. Bladder volume is 140 cc. No evidence of mass No significant bladder wall thickening. Ureteral jets not seen. Procedure Note Pascual Phillips MD - 01/25/2022 US BLADDER TECHNIQUE: Bladder Ultrasound. COMPARISON: None FINDINGS: Bladder: Partially filled. Bladder volume is 140 cc. No evidence of massNo significant bladder wall thickening. Ureteral jets not seen. IMPRESSION: No significant sonographic abnormality. us Danny Morgan DO IMG US RENAL Final Result documented in this encounter Visit Diagnoses Diagnosis Other abnormal findings in urine- Primary Other abnormal findings in urine documented in this encounter Care Teams Collection Administrator Relationship Specialty Start Date End Date Danny Morgan DO PCP - General 04/19/17 11/02/24 Danny Morgan DO 179 [place] [address] [email or web address] PCP - General Internal Medicine 11/03/24 Radha Tapia, RN [address] [place] [address] [email or web address] Registered Nurse 11/21/21 documented as of this encounter Additional Source Comments The information contained in this document represents components of the legal health record. It is not the complete legal health record.[facility]
--- OUTSIDE RECORDS SUMMARY | 2025-04-07 18:31 | XMS_ITS | Encounter Summary ---
Author Organization [facility] Address [address] [place] [address] Phone Care Team Providers Care Sugar Grinder Name Role Phone Radha Tapia RN Unavailable [phone] Danny Morgan DO Primary Care Provider [phone] Reason for Referral * Consultation (Routine) - New Request Specialty Diagnoses / Procedures Referred By Contac t Referred To Contact Diagnoses Atrial fibrillation Chronic anticoagulation Danny Morgan DO [address] [facility] [address] Phone: tel: fax: [email or web address] [address] [address] Phone: tel: Referral ID Status Reason Start Date Expiration Date V isits Requested Visits Authorized [id number] New Request 04/02/2025 04/02/2026 1 1 Encounter Details Date Type Department Care Team (Latest Contact Info) Description 04/02/2025 Transcribe Orders Anticoagulation Clinic [address] [place] [address] Radha Tapia RN 30 [place] [address] [email or web address] Atrial fibrillation (Primary Dx); Chronic anticoagulation Social History Tobacco Use Types Packs/Day Years Used Date Smoking Tobacco: Former Cigarettes Q uit: 07/02/1967 Smokeless Tobacco: Never Alcohol Use Standard Drinks/Week Comments No 0 (1 standard drink = 0.6 oz pur e alcohol) Occasional Education Answer Date Recorded Are you interested in more education? Not on andry e 10/27/2022 Are you concerned about learning? Not on file 10/27/2022 No 10/27/2022 No 10/27/2022 Food Answer Date Recorded Within the past 6 months we worried whether our food would run out before we got money to buy more. Never True 11/03/2024 Within the past 6 months the food we bought just didn't last and we didn't have enough money to get more. Never True Residential Stability Answer Date Recor ded What is your housing situation today? I have monki sing 11/03/2024 How many times have you move d in the past 12 months? Zero (I did not move) 11/03/2024 Paying for Meds Answer Date Recorded Do you have trouble paying for medicines? No 11/03/2024 Paying Utility Bills Answer Date Record ed Do you have trouble paying your heating or elect ricity bill? No 11/03/2024 Transportation Answer Date Recorded Has the lack of transportati on kept you from medical appointments or from getting medications? No 11/03/2024 Digital Access Answer Date Recorded No 11/03/2024 Yes 11/03/2024 Do you have reliable internet access at home? Ye s 11/03/2024 Do you have a device (e.g., phone, tablet, computer) with a working camera? Yes 11/03/2024 Intimate Partner Violence Answer Date R ecorded Are you denied basic needs s uch as food, clothing, or medical care? No 03/28/2025 In the past 12 months have y ou been in a relationship with a person who hurts, threatens, or tries to control you? No 03/28/2025 Are you denied basic needs s uch as food, clothing, or medical care? No 03/28/2025 In the past 12 months have y ou been in a relationship with a person who hurts, threatens, or tries to control you? No 03/28/2025 Comments No Sex and Gender Information Value [...] AM EDT Office Visit Anticoagulation Clinic 30 [place] [address] Danny Morgan DO [address] [place] [address] 06/05/2025 8:20 AM EST Office Visit [facility] [address] [place] [address] [address]rd Floor, [address] [place] [address] Duncan Venegas MD [address] [place] [address] Scheduled Referrals Name Type Priority Associated Diagnoses Orde r Schedule Ambulatory referral to [facility] Outpatient Referral Routine Atrial fibrillation Chronic anticoagulation Ordered: 04/02/2025 documented as of this encounter Visit Diagnoses Diagnosis Atrial fibrillation- Primary Chronic anticoagulation Encounter for long-term (current) use of anticoagulants documented in this encounter Care Teams Sugar Grinder Relationship Specialty Start Date End Date Danny Morgan DO 179 [place] [address] PCP - General Internal Medicine 11/03/24 Radha Tapia, RN [address] [place] [address] Registered Nurse 11/21/21 documented as of this encounter Additional Source Comments The information contained in this document represents components of the legal health record. It is not the complete legal health record.[facility]
--- OUTSIDE RECORDS SUMMARY | 2025-04-07 18:31 | XMS_ITS | Encounter Summary ---
Author Organization [facility] Address [address] [place] [address] Phone Care Team Providers Care Machine Bobbin Winder Name Role Phone Danny Morgan DO Primary Care Provider Radha Tapia RN Unavailable [phone] Danny Morgan DO Primary Care Provider [phone] Reason for Referral * Physical Therapy (Routine) - Closed Specialty Diagnoses / Procedures Referred By Italia rincon Referred To Contact Physical Therapy Diagnoses Encounter for rehabilitation System, Provider Not In, [facility] [id number] [place] [address] 30 [place] [address] Phone: tel: Referral ID Status Reason Start Date Expiration Date Visits Re quested Visits Authorized [id number] Closed 11/19/2017 07/01/2018 99 99 Encounter Details Date Type Department Care Team (Late st Contact Info) Description 11/19/2017 Transcribe Orders [facility] [address] [place] [address] Danny Morgan DO 179 [facility] [place] [address] [email or web address] Encounter for rehabilitation (Primary Dx) Social History Tobacco Use Types [...] AM EDT Office Visit Anticoagulation Clinic [address] [place] [address] Danny Morgan DO 179 [facility] [place] [address] 06/05/2025 8:20 AM EST Office Visit [facility] [address] [place] [address] [address]rd Floor, [address] [place] [address] Duncan Venegas MD [address] [place] [address] Scheduled Referrals Name Type Priority Associated Diagnoses Orde r Schedule Ambulatory referral to [facility] Physical Therapy Outpatient Referral Routine Encounter for rehabilitation Ordered: 11/19/2017 documented as of this encounter Visit Diagnoses Diagnosis Encounter for rehabilitation- Primary documented in this encounter Additional Health Concerns Infection Onset Date Last Indicated Resolved Time CoV-Exposed Comment:Recent close contact 07/13/2020 07/13/2020 07/27/2020 1:24 AM EST documented as of this encounter Care Teams Machine Bobbin Winder Relationship Specialty Start Date End Date Danny Morgan DO PCP - General 04/19/17 11/02/24 Danny Morgan DO 179 [place] [address] PCP - General Internal Medicine 11/03/24 Radha Tapia RN 30 [place] [address] Registered Nurse 11/21/21 documented as of this encounter Additional Source Comments The information contained in this document represents components of the legal health record. It is not the complete legal health record.[facility]
--- OUTSIDE RECORDS SUMMARY | 2025-04-07 18:31 | XMS_ITS | Encounter Summary ---
Author Organization [facility] Address [address] [facility] [address] [place] [address] Phone Care Team Providers Care Rail Detector Car Operator Name Role Phone OpalDanny manjarrez Slava DO Primary Care Provider [phone] Radha Tapia RN Unavailable [phone] Cathy Danny Slava DO Primary Care Provider [phone] Encounter Details Date Type Department Care Team (Latest Contact Info) Description 09/18/2024 Transcribe Orders [facility] [address] [address] Maryjane Orr, CONOR [address] [place] [address] Gastroesophageal reflux disease without esophagitis (Primary Dx) Social History Tobacco Use Types [...] on file 10/27/2022 No 10/27/2022 No 10/27/2022 Digital Access Answer Date Recorded No 11/25/2022 No 11/25/2022 Reliable internet access at home? Not on file 11/25/2022 Device with a working camera? Not on file Intimate Partner Violence Answer Date R ecorded Are you denied basic needs s uch as food, clothing, or medical care? No 04/18/2024 In the past 12 months have y ou been in a relationship with a person who hurts, threatens, or tries to control you? No 04/18/2024 Are you denied basic needs s uch as food, clothing, or medical care? No 04/18/2024 In the past 12 months have y ou been in a relationship with a person who hurts, threatens, or tries to control you? No 04/18/2024 Comments No Sex and Gender Information Value [...] AM EDT Office Visit Anticoagulation Clinic 30 [place] [address] Danny Morgan DO 179 [facility] [place] [address] 06/05/2025 8:20 AM EST Office Visit [facility] [address] [facility] 3rd Floor, [address] [place] [address] Duncan Venegas MD 50 [place] [address] documented as of this encounter Results * 25-OH vitamin D (09/18/2024 12:06 PM EDT) 25 OH VIT D (TOTAL) 42 30 - 60 ng/mL [facility] Blood 09/18/2024 12:0 6 PM EDT 09/18/2024 12:09 PM EDT us Maryjane Orr MISSILE AND MISSILE CHECKOUT TECHNICIAN LAB BLOOD ORDER AMY Final Result [facility] [address] [place] [address] * (ABNORMAL) Zinc (09/18/2024 12:06 PM EDT) Zinc, S 59(L) 60 - 106 mcg/dL [facility] SUPERIOR Comment: (NOTE) ADDITIONAL INFORMATION This test was developed and its performance characteristics determined by [facility] in a manner consistent with CLIA requirements. This test has not been cleared or approved by the U.S. Food and Drug Administration. Blood 09/18/2024 12:0 6 PM EDT 09/18/2024 12:09 PM EDT Maryjane Orr NP LAB BLOOD ORDER AMY Final Result Performing Organization Address [facility] Co de Phone Number [facility] ERWINNA [address] [place] [address] * Vitamin B12 (09/18/2024 12:06 PM EDT) Pathologist [facility] VITAMIN B12 1,102 232 - 1,245 pg/mL [facility] Blood 09/18/2024 12:0 6 PM EDT 09/18/2024 12:09 PM EDT Maryjane Orr NP LAB BLOOD ORDER AMY Final Result Performing Organization Address City/[facility]/ZIP Co de Phone Number [address] [address] * Vitamin A (09/18/2024 12:06 PM EDT) Pathologist [facility] VITAMIN A 55.8 32.5 - 78.0 mcg/dL [facility] SUPERIOR Comment: (NOTE) ADDITIONAL INFORMATION This test was developed and its performance characteristics determined by [facility] in a manner consistent with CLIA requirements. This test has not been cleared or approved by the U.S. Food and Drug Administration. Blood 09/18/2024 12:0 6 PM EDT 09/18/2024 12:09 PM EDT Maryjane Orr MISSILE AND MISSILE CHECKOUT TECHNICIAN LAB BLOOD ORDER AMY Final Result [facility] [address] [place] [address] * Magnesium (09/18/2024 12:06 PM EDT) MAGNESIUM 2.2 1.6 - 2.6 mg/dL [facility] Blood 09/18/2024 12:0 6 PM EDT 09/18/2024 12:09 PM EDT Maryjane Orr MISSILE AND MISSILE CHECKOUT TECHNICIAN LAB BLOOD ORDER AMY Final Result Performing Organization Address [facility] de Phone Number [address] [address] * (ABNORMAL) Folate (09/18/2024 12:06 PM EDT) FOLIC ACID >20.0(H) 4.2 - 19.9 ng/mL [facility] Blood 09/18/2024 12:0 6 PM EDT 09/18/2024 12:09 PM EDT [facility] Emili Russellg MISSILE AND MISSILE CHECKOUT TECHNICIAN LAB BLOOD ORDER AMY Final Result Performing Organization Address [facility] Co de Phone Number [address] [address] * Ferritin (09/18/2024 12:06 PM EDT) FERRITIN 75 13 - 150 ug/L [facility] Blood 09/18/2024 12:0 6 PM EDT 09/18/2024 12:09 PM EDT Maryjane Orr MISSILE AND MISSILE CHECKOUT TECHNICIAN LAB BLOOD ORDER AMY Final Result Performing Organization Address City/[facility]/ZIP Co de Phone Number [address] [address] * TSH (09/18/2024 12:06 PM EDT) TSH 1.56 0.27 - 4.20 uIU/mL [facility] Blood 09/18/2024 12:0 6 PM EDT 09/18/2024 12:09 PM EDT Maryjane Orr MISSILE AND MISSILE CHECKOUT TECHNICIAN LAB BLOOD ORDER AMY Final Result Performing Organization Address [facility] Co de Phone Number [address] [address] documented in this encounter Visit Diagnoses Diagnosis Gastroesophageal reflux disease without esophagitis- Primary Esophageal reflux documented in this encounter Care Teams Rail Detector Car Operator Relationship Specialty Start Date End Date Danny Morgan DO PCP - General 04/19/17 11/02/24 Danny Morgan DO [address] [place] [address] PCP - General Internal Medicine 11/03/24 Radha Tapia RN [address] [place] [address] Registered Nurse 11/21/21 documented as of this encounter Additional Source Comments The information contained in this document represents components of the legal health record. It is not the complete legal health record.[facility]
[2025-04-07 18:34] LABS: Alanine Aminotransferase 14 U/L (0-31); Albumin Level 4.2 g/dL (3.5-5.0); Alkaline Phosphatase 85 U/L (39-117); Anion Gap 12 (12-20); Aspartate Amino Transferase 25 U/L (5-31); Blood Urea Nitrogen 16 mg/dL (9-16); Calcium 8.8 mg/dL (8.4-10.2); Carbon Dioxide 29 mmol/L (22-29); Chloride 104 mmol/L (96-108); Estimated Glomerular Filt Rate > 60; Magnesium 1.9 mg/dL (1.6-2.6); Potassium 4.2 mmol/L (3.3-5.1); Sodium 141 mmol/L (135-145); Total Protein 6.7 g/dL (6.5-8.0)
== END 2025-04-07 15:18 | disposition home or self-care (01) ==
LOC: HO.MANLDS 15:17
PROVIDERS: Visit Provider Physician Assistant
DX: I50.9 Heart failure, unspecified (principal); E87.5 Hyperkalemia
CPT/HCPCS: 36415; 80053; 83735; 85652; 86140